=== PATIENT | male | born 1990 | race Two or more races ===

== ENCOUNTER 2018-11-29 20:14 | Emergency (ER) | payer SELFPAY ==
[~2018-11-29] VITALS: Ht 170.2 cm; Wt 90.7 kg
[2018-11-29 21:25] VITALS: BP 137/98
--- NOTE | 2018-11-29 22:33 | PHYS DOC ---
Past Medical History Past Medical History: No Pertinent History (SKYLER FLETCHER APRN) Past Surgical History: No Surgical History (SKYLER FLETCHER APRN) Alcohol Use: Rarely Drug Use: None (SKYLER FLETCHER APRN) Adult General Chief Complaint Chief Complaint: HAND PROBLEM HPI HPI 28-year-old male presents to ER via POV for complaints of ongoing right palm pain and numbness which has been ongoing for several weeks. Patient denies any injury. He reports he is right hand dominant. 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 She reports she has intermittent numbness and tingling he reports he has taken Tylenol and ibuprofen with no relief in symptoms. He reports he feels the palm of his hand is swollen denies skin discoloration. (SKYLER FLETCHER APRN) Review of Systems Review of Systems Constitutional: Denies fever Musculoskeletal: Reports rt palm swelling/pain/numbness and tingling Integument: Denies rash or skin lesions [] Neurologic: Denies focal weakness or sensory changes [] All other systems were reviewed and found to be within normal limits, except as documented in this note. (SKYLER FLETCHER APRN) Current Medications Current Medications Current Medications Medications (Trade) Dose Ordered Sig/Ajay Start Time Stop Time Status Last Admin Dose Admin Prednisone (Prednisone) 40 mg 1X ONCE 11/29/18 23:00 11/29/18 23:01 DC 11/29/18 22:39 40 MG (YOUNG TURNER DO) Allergies Allergies Allergies Coded Allergies Type Severity Reaction Last Updated Verified No Known Drug Allergies 11/29/18 No (YOUNG TURNER DO) Physical Exam Physical Exam Constitutional: Well developed, well nourished, no acute distress, non-toxic appearance. [] HENT: Normocephalic, atraumatic, oropharynx moist, nose normal. [] Eyes: Pupils equal, conjunctiva normal, no discharge. [] Neck: Normal range of motion, supple Cardiovascular: Heart rate regular Lungs & Thorax: Resp. equal/nonlabored Skin: Warm, dry, no erythema, no rash. [] Extremities: No cyanosis, no clubbing, ROM intact, no edema. 2+ rt radial. Tender on palp. rt palm lateral side at base of small finger- denies any pain in wrist/elbow. Funeral Director'S Assistant equal. Cap refill brisk. Pt reports swelling to rt palm- on exam bilat. palm surface appear symmetric in size. Neurologic: Alert and oriented X 3, normal motor function, normal sensory f unction, no focal deficits noted. [] Psychologic: Affect normal, judgement normal, mood normal. [] (SKYLER FLETCHER APRN) Current Patient Data Vital Signs Vital Signs Date Time Temp Pulse Resp B/P (MAP) Pulse Ox O2 Delivery O2 Flow Rate FiO2 11/29/18 21:25 97.8 81 16 137/98 (111) 100 Room Air 97.8 (YOUNG TURNER DO) EKG EKG [] (SKYLER FLETCHER APRN) Radiology/Procedures Radiology/Procedures [] (SKYLER FLETCHER APRN) Course & Med Decision Making Course & Med Decision Making Patient was evaluated in the ER for complaints of right palm pain with intermittent numbness denying any injury. Patient had full range of motion of his right hand and was PMS intact in right upper extremity. Patient was offered x-ray for further evaluation and patient preferred no imaging while in the ER. Velcro splint was placed by this provider and patient reported he had improved pain in his right hand. He remained PMS intact following splint application. Discussed plans for dose of prednisone while in the ER and prescription with this discharge paperwork. We'll provide community clinic resource sheet as well as orthopedic referral information with his discharge paperwork for follow-up purposes. Rice acronym discussed. Education provided on signs and symptoms to return to ER for and discharge instructions were discussed. [] (SKYLER FLETCHER APRN) Dragon Disclaimer Dragon Disclaimer This electronic medical record was generated, in whole or in part, using a voice recognition dictation system. (SKYLER FLETCHER APRN) Splinting Splinting : Location: Right wrist Pre-Made Type: velcro (wrist splint) Pre-Proc Neuro Vasc Exam: normal Post-Proc Neuro Vasc Exam: normal, unchanged from pre-exam (YOUNG TURNER DO) Departure Departure Impression: Primary Impression: Hand pain, right Additional Impression: Right hand paresthesia Disposition: 01 HOME, SELF-CARE Condition: STABLE Referrals: NO PCP (PCP) JESSICA FALCON MD Patient Instructions: RICE - Routine Care for Injuries Additional Instructions: You were evaluated for complaints of hand pain and swelling. With the splint provided to provide compression of right hand as needed. If symptoms persist follow-up with your primary care physician and/or orthopedics for reevaluation and further care. You can try [id number] ibuprofen and/or Tylenol as directed on container for pain relief. You can also do Epsom salt soaks with your right hand as directed on container. Attending Signature Attending Signature I have participated in the care of this patient and I have reviewed and agree with all pertinent clinical information above including history, exam, and recommendations. (YOUNG TURNER DO) Problem Qualifiers REFSKYLER MORATAYA APRN Nov 29, 2018 22:33 YOUNG TURNER DO December 02, 2018 02:31
[2018-11-29] MEDS ORDERED: predniSONE 20 MG TABLET PO ONE (23:00)
== END 2018-11-29 23:00 | disposition home or self-care (01) ==
LOC: ER 20:14
DX: M79.641 Pain in right hand (principal); R20.0 Anesthesia of skin
CPT/HCPCS: 29125; 99283; J7512